=== PATIENT | female | born 2000 | race Caucasian/White ===

== ENCOUNTER 2023-07-06 00:41 | Inpatient (IN) | payer OTHER ==
[2023-07-06] MEDS ORDERED: DEXTROSE 5%-LACTATED RINGERS 1,000 ML IV SCH (01:45)
[2023-07-06 02:06] VITALS: BMI 35.5
[2023-07-06 02:15] LABS: BASO % 0.8 % (0-2.0); EOS % 0.4 % (0-4.5); HEMATOCRIT 38.9 % (32.4-45.2); HEMOGLOBIN 12.9 GM/dL (10.7-15.3); MCH 25.9 pg (25.7-33.7); MCHC 33.3 g/dl (32.0-36.0); MEAN CELL VOLUME 77.7 fl (80-96); MEAN PLT VOLUME 8.7 fl (7.5-11.1); MONO % 8.3 % (3.8-10.2); NEUT % 68.5 % (42.8-82.8); PLATELET COUNT 318 10^3/uL (134-434); RDW 16.5 % (11.6-15.6); WHITE BLOOD COUNT 10.1 K/mm3 (4.0-10.0)
[2023-07-06 02:21] LABS: INR 1.04 (0.83-1.09); PROTHROMBIN TIME (PATIENT) 12.1 SEC (9.7-13.0)
[2023-07-06] MEDS ORDERED: OXYTOCIN 20 UNITS in 0.9% NS 20 UNIT/1,000 ML INFUS.BAG IV ONE (02:22)
[2023-07-06] MEDS ORDERED: LIDOCAINE HCL 1% PRESERVATIVE FREE - 30ML VIAL ONE (02:23)
[2023-07-06 02:24] LABS: ACTIVATED PTT 27.4 SECONDS (25.2-36.5)
[2023-07-06 02:35] LABS: POTASSIUM 4.1 mmol/L (3.5-5.1)
[2023-07-06 02:39] LABS: BLOOD UREA NITROGEN 8.2 mg/dL (7-18)
[2023-07-06 02:42] LABS: CREATININE 0.6 mg/dL (0.55-1.3)
[2023-07-06] MEDS ORDERED: morphine CARPU-JECT 8 MG/1 ML DISP.SYRIN IVPB ONE (02:46)
[2023-07-06] MEDS ORDERED: morphine SULFATE 4 MG/ML VIAL IVPB ONE (02:46)
[2023-07-06] MEDS ORDERED: morphine SULFATE 4 MG/ML VIAL ONE (03:14)
[2023-07-06] MEDS ORDERED: ACETAMINOPHEN 325 MG TABLET (FP) PO PRN (03:47)
[2023-07-06] MEDS ORDERED: WITCH HAZEL 50% (TUCKS) 40 PAD/JAR PAD TP PRN (03:47)
[2023-07-06] MEDS ORDERED: BENZOCAINE 28 GM HEMORRHOIDAL OINTMENT TP PRN (03:47)
[2023-07-06] MEDS ORDERED: OXYTOCIN 20 UNITS in 0.9% NS 20 UNIT/1,000 ML INFUS.BAG IV SCH (04:00)
[2023-07-06 04:32] LABS: CORD BASE EXCESS -7.1 mmol/L (0-2); CORD HCO3 17.6 mmHg (20-29); CORD PCO2 33.1 mmHg (30-78); CORD pH 7.343 (7.14-7.44)
[2023-07-06 05:57] VITALS: RESP 18
[2023-07-06] MEDS: FERROUS SO4 325 MG TABLET (FP) PO SCH ×3 (09:34→18:37)
[2023-07-06] MEDS: PRENATAL VITAMINS W/ FOLIC ACID TABLET (FP) PO SCH (09:34)
[2023-07-06] MEDS: IBUPROFEN 600 MG TABLET (FP) PO PRN ×4 (09:34→23:50)
[2023-07-07 08:42] LABS: EOS % 1.2 % (0-4.5); HEMATOCRIT 31.2 % (32.4-45.2); HEMOGLOBIN 10.4 GM/dL (10.7-15.3); LYMPH % 34.1 % (8-40); MCH 26.1 pg (25.7-33.7); MCHC 33.3 g/dl (32.0-36.0); MEAN CELL VOLUME 78.3 fl (80-96); MEAN PLT VOLUME 8.3 fl (7.5-11.1); NEUT % 55.7 % (42.8-82.8); PLATELET COUNT 245 10^3/uL (134-434); RBC 3.98 M/mm3 (3.60-5.2); RDW 16.6 % (11.6-15.6); WHITE BLOOD COUNT 10.4 K/mm3 (4.0-10.0)
[2023-07-07] MEDS: PRENATAL VITAMINS W/ FOLIC ACID TABLET (FP) PO SCH (09:18)
[2023-07-07] MEDS: FERROUS SO4 325 MG TABLET (FP) PO SCH ×2 (09:19→13:18)
[2023-07-07] MEDS: IBUPROFEN 600 MG TABLET (FP) PO PRN ×3 (09:19→21:53)
[2023-07-08] MEDS: PRENATAL VITAMINS W/ FOLIC ACID TABLET (FP) PO SCH (10:19)
[2023-07-08] MEDS: IBUPROFEN 600 MG TABLET (FP) PO PRN (10:43)
[2023-07-08 10:50] VITALS: BP 110/75; PULSE 94; TEMP 97.9
== END 2023-07-08 14:15 | disposition home or self-care (01) | DRG 560 ==
LOC: JDEL 00:41 → JLDR 01:30 → J3W 04:57
PROVIDERS: ADMIT Obstetrics & Gynecology Maternal & Fetal Medicine; ATTEND Obstetrics & Gynecology Maternal & Fetal Medicine
PROC: 10E0XZZ Delivery of Products of Conception, External Approach (ICD-10-PCS; principal; 2023-07-06)
PROC: 0HQ9XZZ Repair Perineum Skin, External Approach (ICD-10-PCS; 2023-07-06)
DX: O62.9 Abnormality of forces of labor, unspecified (principal); O70.0 First degree perineal laceration during delivery; Z3A.40 40 weeks gestation of pregnancy; Z37.0 Single live birth
CPT/HCPCS: 36415; 36600; 59025; 80048; 82803; 85025; 85610; 85730; 86762; 86780; 86850; 86900; 86901